=== PATIENT | male | born 1985 | race Caucasian/White ===

== ENCOUNTER 2017-05-01 19:19 | Emergency (ER) | payer OTHER ==
[2017-05-01 19:24] VITALS: BP 171/112; PULSE 112; RESP 20; TEMP 98.6
[2017-05-01] MEDS ORDERED: DIPH,PERTUS(ACELL)TETVAC-LF 0.5 ML VIAL IM ONE (19:28)
[2017-05-01] MEDS ORDERED: ceFAZolin 2 GM in SODIUM CHLORIDE 0.9% 100 ML IVPB STA (19:29)
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
[2017-05-01] MEDS ORDERED: SODIUM CHLORIDE 0.9% 1,000 ML IV ONE (19:42)
[2017-05-01 19:43] LABS: Glucose,Whole Blood 166 mg/dL (75-99)
[2017-05-01 19:45] LABS: Basophils # (A) 0.2 k/uL (0-0.2); Basophils % (A) 2 %; CHCM 35.7; Eosinophils # (A) 0.6 k/uL (0-0.7); Eosinophils % (A) 5 %; HCT 47.1 % (39.0-53.0); HDW 2.73; HGB 16.2 gm/dL (13.0-17.5); Luc # (Auto) 0.36; Luc % (Auto) 3; Lymphocytes # (A) 4.8 k/uL (1.0-4.8); Lymphocytes % (A) 36 %; MCHC 34.4 g/dL (31.0-37.0); MCV 95.9 fL (80.0-100.0); Mean Platelet Volume 8.9; Monocytes # (A) 0.6 k/uL (0-1.0); Monocytes % (A) 5 %; Neutrophils # (A) 6.5 k/uL (1.3-7.7); Neutrophils % (A) 50 %; RBC 4.91 m/uL (4.30-5.90); VBG PH 7.35 (7.31-7.41); WBC 13.2 k/uL (3.8-10.6); WBC (Perox) 12.79
[2017-05-01] MEDS ORDERED: SODIUM CHLORIDE 0.9% 1,000 ML IV SCH (19:45)
[2017-05-01 19:55] LABS: ALT 36 U/L (21-72); AST 35 U/L (17-59); Alkaline Phosphatase 94 U/L (38-126); Amylase 58 U/L (30-110); Anion Gap 18 mmol/L; Blood Urea Nitrogen 16 mg/dL (9-20); Calcium 9.5 mg/dL (8.4-10.2); Carbon Dioxide 15 mmol/L (22-30); Chloride 111 mmol/L (98-107); Glucose 127 mg/dL (74-99); Non-African American GFR(MDRD) >60 (>60 ml/min/1.73 sqM); Potassium 4.3 mmol/L (3.5-5.1); Sodium 144 mmol/L (137-145); Total Bilirubin 0.6 mg/dL (0.2-1.3); Total Protein 7.7 g/dL (6.3-8.2)
[2017-05-01 19:58] LABS: Alcohol 166 mg/dL
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
[2017-05-01 20:06] LABS: Prothrombin Time 9.9 sec (9.0-12.0)
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
[2017-05-01 20:08] LABS: Creatine Kinase 148 U/L (55-170)
--- NOTE | 2017-05-01 20:08 | XR ---
EXAMINATION TYPE: XR femur LT DATE OF EXAM: 05/01/2017 COMPARISON: NONE HISTORY: Pain TECHNIQUE: 4 views FINDINGS: I see no fracture nor dislocation. Knee joint and hip joint appear intact. There is a large laceration deformity in the soft tissues of the medial thigh. IMPRESSION: Large laceration soft tissue deformity. No fracture.
[2017-05-01 20:21] LABS: Creatine Kinase MB 1.6 ng/mL (0.0-2.4); Troponin I <0.012 ng/mL (0.000-0.034)
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
== END 2017-05-01 21:20 | disposition short-term general hospital (02) ==
LOC: EC 19:19
DX: S71.112A Laceration without foreign body, left thigh, initial encounter (principal); R00.0 Tachycardia, unspecified; F17.200 Nicotine dependence, unspecified, uncomplicated; Z23 Encounter for immunization; V23.4XXA Motorcycle driver injured in collision with car, pick-up truck or van in traffic accident, initial encounter; Y93.55 Activity, bike riding
CPT/HCPCS: 99291; 96365; 90471; 36415; 93005; 86900; 86901; 80053; 82150; 82550; 82553; 82803; 83605; 83690; 84484; 85025; 85610; 85730; 86850; 80320; 71010; 72170; 73552; 72125; 70450; 90715; J0690

== ENCOUNTER 2017-12-27 12:07 | Emergency (ER) | payer BC ==
[2017-12-27 12:13] VITALS: BP 159/92; PULSE 92; RESP 18; TEMP 98
--- NOTE | 2017-12-27 12:36 | ED ---
General Adult HPI - General Chief complaint: Extremity Injury, Lower Stated complaint: Ankle Injury Time Seen by Provider: 12/27/17 12:21 Source: patient, RN notes reviewed Mode of arrival: ambulatory Limitations: no limitations - History of Present Illness Initial comments: 32-year-old male presents to the emergency department for a chief complaint of left ankle pain times one day. Patient states that last night he was walking down his stairs when he accidentally slipped on the last stair and landed with inversion on the left ankle. He denies falling or injuring his head or back. He has no other injuries from this occurrence. Patient states his ankle is painful to walk on. Patient states he has sensation in the entire left ankle and foot. Patient denies having previous surgery on the left ankle. Patient has no other complaints at this time including headache, shortness of breath, chest pain, abdominal pain, nausea or vomiting. - Related Data Previous Rx's Medication Instructions Recorded Ibuprofen [Motrin] 600 mg PO Q8HR PRN #20 tab 12/27/17 Allergies Allergy/AdvReac Type Severity Reaction Status Date / Time No Known Allergies Allergy Verified 12/27/17 12:10 Review of Systems ROS Statement: Those systems with pertinent positive or pertinent negative responses have been documented in the HPI. ROS Other: All systems not noted in ROS Statement are negative. Past Medical History Past Medical History: No Reported History History of Any Multi-Drug Resistant Organisms: None Reported Past Surgical History: Appendectomy Past Psychological History: No Psychological Hx Reported Smoking Status: Current every day smoker Past Alcohol Use History: Occasional Past Drug Use History: Marijuana General Exam Limitations: no limitations General appearance: alert, in no apparent distress Head exam: Present: atraumatic, normocephalic, normal inspection Respiratory exam: Present: normal lung sounds bilaterally. Absent: respiratory distress, wheezes, rales, rhonchi, stridor Cardiovascular Exam: Present: regular rate, normal rhythm, normal heart sounds. Absent: systolic murmur, diastolic murmur, rubs, gallop, clicks Extremities exam: Present: tenderness (Tenderness to the medial and lateral malleolus of the left ankle. Tenderness to the navicular area of the left foot. No tenderness in the fifth metatarsal.), normal capillary refill (Refill less than 2 seconds in the left lower extremity. Pedal pulse 2+.), joint swelling (Moderate swelling to the lateral left ankle with ecchymosis present.) , other (Patient has full sensation in the left ankle, foot, and digits.). Absent: full ROM (Limited flexion and extension and inversion/a version of the left ankle.), pedal edema, calf tenderness Course Vital Signs 12/27/17 12:10 Temperature 98 F Pulse Rate 92 Respiratory 18 Rate Blood Pressure 159/92 O2 Sat by Pulse 99 Oximetry Procedures - Procedures Initial comment: Neurovascular intact before splint application Indication: left ankle sprain Type: short leg stirrup Wounds: no abrasions or lacerations underneath splint Neurovascular status: patient has sensation and movement of digits extending outside the splint, there is no cyanosis, capillary refill < 2 seconds Follow-up: patient given number for orthopedics and instructed to phone to make an appointment. Patient aware he can return to the Emergency Department if any difficulties. Medical Decision Making - Medical Decision Making 32-year-old female presents to the emergency department for a chief complaint of left ankle pain times one day. Patient slipped on his last stair yesterday and landed on the left ankle inverted. Patient did not fall or sustain other injuries. On exam, left ankle has moderate lateral swelling and ecchymosis present. He has tenderness to the medial and lateral malleoli as well as the navicular. Neurovasc intact. X-ray of the left foot and ankle shows some soft tissue swelling adjacent to the lateral malleolus. No fracture, dislocation, or ankle joint effusion is seen. Patient likely has a sprain of the left ankle. He will be splinted in a stirrup. He will have crutches and Motrin prescribed. Patient is advised to return to the emergency department if he has any worsening symptoms. He will follow up with orthopedics in one to 2 days. Disposition Clinical Impression: Ankle sprain Disposition: HOME SELF-CARE Condition: Good Instructions: Ankle Sprain (ED) Additional Instructions: Please keep the left ankle elevated and apply ice to the affected extremity. Please use Motrin or Tylenol for pain relief and anti-inflammatory effects. Return to the emergency department if symptoms worsen. Otherwise follow-up with orthopedics in one to 2 days. Prescriptions: Ibuprofen [Motrin] 600 mg PO Q8HR PRN #20 tab PRN Reason: Pain Is patient prescribed a controlled substance at d/c from ED?: No Referrals: None,Stated [Primary Care Provider] - 1-2 days Meredith Rodriguez DO [Doctor of Osteopathic Medicine] - 1-2 days Time of Disposition: 13:29
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
== END 2017-12-27 13:46 | disposition home or self-care (01) ==
LOC: EC 12:07
DX: S93.402A Sprain of unspecified ligament of left ankle, initial encounter (principal); F17.200 Nicotine dependence, unspecified, uncomplicated; W01.0XXA Fall on same level from slipping, tripping and stumbling without subsequent striking against object, initial encounter; Y93.01 Activity, walking, marching and hiking
CPT/HCPCS: 29515; 99283

== ENCOUNTER 2024-06-09 20:26 | Emergency (ER) | payer SELFPAY ==
[2024-06-09 20:31] VITALS: RESP 18; TEMP 98.6
--- NOTE | 2024-06-09 22:54 | ED ---
Skin/Abscess/FB HPI - General Chief complaint: Skin/Abscess/Foreign Body Stated complaint: L hand laceration Time Seen by Provider: 06/09/24 20:33 Source: patient Mode of arrival: ambulatory Limitations: no limitations - History of Present Illness Initial comments: 38-year-old male presenting with chief complaint of laceration. Patient cut his left pointer finger on a spring from his garage door. He has a 5 cm irregular laceration to the point finger. Last tetanus was about a year ago. Bleeding is well-controlled. Full range of motion and sensation. - Related Data Previous Rx's Medication Instructions Recorded Ibuprofen [Motrin] 600 mg PO Q8HR PRN #20 tab 12/27/17 Cephalexin [Keflex] 500 mg PO Q6HR 7 Days #28 cap 06/09/24 Allergies Allergy/AdvReac Type Severity Reaction Status Date / Time No Known Allergies Allergy Verified 06/09/24 20:30 Review of Systems ROS Statement: Those systems with pertinent positive or pertinent negative responses have been documented in the HPI. ROS Other: All systems not noted in ROS Statement are negative. Past Medical History Past Medical History: No Reported History History of Any Multi-Drug Resistant Organisms: None Reported Past Surgical History: Appendectomy Past Psychological History: No Psychological Hx Reported Smoking Status: Current every day smoker Past Alcohol Use History: Occasional Past Drug Use History: Marijuana General Exam Limitations: no limitations General appearance: alert, in no apparent distress Head exam: Present: atraumatic, normocephalic, normal inspection Eye exam: Present: normal appearance, EOMI Neck exam: Present: normal inspection. Absent: meningismus Respiratory exam: Absent: respiratory distress Left Hand Wrist exam: Present: full ROM, tenderness, laceration Neurological exam: Present: alert, oriented X3 Psychiatric exam: Present: normal affect, normal mood Course Vital Signs 06/09/24 06/09/24 20:27 23:17 Temperature 98.6 F Pulse Rate 104 H 78 Respiratory 18 18 Rate Blood Pressure 154/98 135/84 O2 Sat by Pulse 100 98 Oximetry Procedures - Laceration Laceration #1 Consent Obtained: verbal consent Indication: laceration Site: hand (Left index finger) Size (cm): 5 Description: irregular Anesthetic Used: lidocaine 1%, without epi Anesthesia Technique: local infiltration Pre-repair: wound explored, irrigated extensively Type of Sutures: nylon Size of Sutures: 4-0 Number of Sutures: 12 Technique: simple, interrupted Patient Tolerated Procedure: well Medical Decision Making - Medical Decision Making Was pt. sent in by a medical professional or institution (DONNA Wray, HOSPITAL FOOD SERVICE WORKER, urgent care, hospital, or alf...) When possible be specific @ -No Did you speak to anyone other than the patient for history (EMS, parent, family, police, friend...)? What history was obtained from this source @ -No Did you review nursing and triage notes (agree or disagree)? Why? @ -I reviewed and agree with nursing and triage notes Were old charts reviewed (outside hosp., previous admission, EMS record, old EKG, old radiological studies, urgent care reports/EKG's, alf records)? Report findings @ -No old charts were reviewed Differential Diagnosis (chest pain, altered mental status, abdominal pain women, abdominal pain men, vaginal bleeding, weakness, fever, dyspnea, syncope, headache, dizziness, GI bleed, back pain, seizure, CVA, palpatations, mental health, musculoskeletal)? @ -Differential Musculoskeletal Muscular strain, contusion, ligament sprain, fracture, arthritis, septic arthritis, bursitis, cellulitis, muscle spasm, nerve compression, DVT, arterial occlusion, herpes zoster, electrolyte abnormality, tumor.... This is not meant to be in all inclusive list EKG interpreted by me (3pts min.). @ -As above X-rays interpreted by me (1pt min.). @ -X-ray shows soft tissue injury involving the mid index finger without clear evidence of any acute bony injury in this region. Correlate clinically for possible osseous injury to the head of the second metacarpal CT interpreted by me (1pt min.). @ -None done U/S interpreted by me (1pt. min.). @ -None done What testing was considered but not performed or refused? (CT, X-rays, U/S, labs)? Why? @ -None What meds were considered but not given or refused? Why? @ -None Did you discuss the management of the patient with other professionals (professionals i.e. DONNA Wray, HOSPITAL FOOD SERVICE WORKER, lab, RT, psych nurse, social media director, public works laborer, teacher, community liaison officer, foster care case manager)? Give summary @ -No Was smoking cessation discussed for >3mins.? @ -No Was critical care preformed (if so, how long)? @ -No Were there social determinants of health that impacted care today? How? (Homelessness, low income, unemployed, alcoholism, drug addiction, transportation, low edu. Level, literacy, decrease access to med. care, shelter, rehab)? @ -No Was there de-escalation of care discussed even if they declined (Discuss DNR or withdrawal of care, Hospice)? DNR status @ -No What co-morbidities impacted this encounter? (DM, HTN, Smoking, COPD, CAD, Cancer, CVA, ARF, Chemo, Hep., AIDS, mental health diagnosis, sleep apnea, morbid obesity)? @ -None Was patient admitted / discharged? Hospital course, mention meds given and route, prescriptions, significant lab abnormalities, going to OR and other perti nent info. @ -38-year-old male presenting with chief complaint of laceration. He has an irregular laceration left pointer finger after injuring it on a spring from his garage door. X-ray shows avulsion fracture to the second metacarpal. The wound is soaked in warm soapy water with iodine. The wound edges are then approximated as much as it would allow given multiple skin avulsions and the irr egular nature of the wound. Wound was wrapped in a bulky dressing and finger splint was applied. Patient will be started on Keflex. Instructed to follow-up with orthopedics. Discharged. Follow-up with PCP. Report back to ER with any new or worsening symptoms. Discussed return parameters and answered all questions. Patient conveyed verbal understanding and agreed to the plan. I discussed this case in detail with my attending Dr. Roy Undiagnosed new problem with uncertain prognosis? @ -No Drug Therapy requiring intensive monitoring for toxicity (Heparin, Nitro, Insulin, Cardizem)? @ -No Were any procedures done? @ -Laceration repair Diagnosis/symptom? @ -Laceration Acute, or Chronic, or Acute on Chronic? @ -Acute Uncomplicated (without systemic symptoms) or Complicated (systemic symptoms)? @ -Uncomplicated Side effects of treatment? @ -No Exacerbation, Progression, or Severe Exacerbation? @ -No Poses a threat to life or bodily function? How? (Chest pain, [place], [place], pneumonia, PE, COPD, DKA, ARF, appy, cholecystitis, CVA, Diverticulitis, Homicidal, Suicidal, threat to staff... and all critical care pts) @ -Unlikely Disposition Clinical Impression: Laceration, Metacarpal bone fracture Disposition: HOME SELF-CARE Condition: Good Instructions (If sedation given, give patient instructions): Care For Your Stitches (ED), Hand Fracture (ED), Finger Laceration (ED) Additional Instructions: Follow-up with PCP. Report back to ER with any new or worsening symptoms. Keep the wound clean dry and covered. Wash regularly with soap and water. Avoid fully submerging the wound in water for prolonged periods of time. Monitor for signs of infection, including but not limited to redness, swelling, warmth, tenderness, discharge, fever. Sutures may be removed in 10 to 14 days. Take medication as prescribed. Follow-up with orthopedics. Keep your splint on until cleared by orthopedics. Change her dressing daily. Prescriptions: Cephalexin [Keflex] 500 mg PO Q6HR 7 Days #28 cap Is patient prescribed a controlled substance at d/c from ED?: No Referrals: None,Stated [Primary Care Provider] - 1-2 days Sharad Ponce MD [STAFF PHYSICIAN] - 1-2 days Time of Disposition: 22:54
[2024-06-09] MEDS: CEPHALEXIN 500MG STARTER PACK 4 CAP BTL PO STA (23:16)
[2024-06-09 23:19] VITALS: BP 135/84; PULSE 78
--- NOTE | 2024-06-10 00:02 | XR ---
EXAMINATION TYPE: XR finger LT DATE OF EXAM: 06/09/2024 9:41 PM CLINICAL INDICATION:Male, 38 years old with history of laceration pointer finger; H COMPARISON: None TECHNIQUE: 3 views left index finger FINDINGS: Soft tissue irregularities of the mid second digit consistent with reported laceration. There is no r adiopaque foreign body seen. No evidence of acute fracture or dislocation is seen in this region. The re is suggestion of small cortical irregularity along the second metacarpal head, versus degenerative changes. IMPRESSION: * Soft tissue injury involving the mid index finger, without clear evidence of an acute bony injury in this region. * Correlate clinically for possible osseous injury to the head of the second metacarpal. [facility], , 06/10/2024 12:00 AM
== END 2024-06-09 23:18 | disposition home or self-care (01) ==
LOC: EC 20:26
CPT/HCPCS: 12002; 99283